=== PATIENT | male | born 1975 | race Two or more races ===

== ENCOUNTER 2019-01-24 13:47 | Outpatient (CLI) | payer OTHER | END 2019-01-24 14:04 | disposition home or self-care (01) | LOC: RAD 13:47 | DX: R05 Cough (principal) ==

== ENCOUNTER 2021-04-13 19:26 | Emergency (ER) | payer OTHER ==
[~2021-04-13] VITALS: Ht 180.3 cm; Wt 106.6 kg
[2021-04-13] MEDS ORDERED: CIPRO500 MG PO (23:25)
[2021-04-13] MEDS ORDERED: ACETAMINOPHEN650 M2 PO (23:25)
[2021-04-13] MEDS ORDERED: INTESTINEX680 M1 PO (23:25)
== END 2021-04-13 23:58 | disposition home or self-care (01) ==
LOC: ER 19:26
DX: B34.9 Viral infection, unspecified (principal); K52.9 Noninfective gastroenteritis and colitis, unspecified; Z11.52 Encounter for screening for COVID-19